=== PATIENT | female | born 2005 | race Two or more races ===

== ENCOUNTER 2024-06-25 16:33 | Emergency (ER) | payer MEDICAID ==
[~2024-06-25] VITALS: Ht 167.6 cm; Wt 63.5 kg
[2024-06-25 17:23] LABS: APPEARANCE,URINE CLEAR (CLEAR); BILIRUBIN,URINE NEGATIVE (NEGATIVE); BLOOD, URINE TRACE-INTA Ery/uL (NEGATIVE); COLOR,URINE YELLOW (YELLOW); KETONES,URINE NEGATIVE (NEGATIVE); LEUKOCYTE ESTERASE ,URINE NEGATIVE (NEGATIVE); NITRITE, URINE NEGATIVE (NEGATIVE); PROTEIN,URINE NEGATIVE (NEGATIVE); UGLUCOSE NEGATIVE (NEGATIVE); UROBILINOGEN,URINE 0.2 EU/dL (0.2)
[2024-06-25 17:25] LABS: PREGNANCY TEST URINE QUAL NEGATIVE (NEGATIVE)
[2024-06-25 17:42] LABS: SQUAMOUS EPITHELIAL CELL,UR Few /HPF (None Seen)
[2024-06-25 17:43] LABS: ADD URINE CULTURE NO; BACTERIA,URINE Rare /HPF (None Seen); WBC,URINE 0-2 /HPF (0-3)
[2024-06-25 19:25] VITALS: BP 128/80; TEMP 98.5; O2SAT 99
[2024-06-28 00:10] LABS: CHLAMYDIA TRACHOMATIS NAA Negative (Negative); NEISSERIA GONORRHOEAE NAA Negative (Negative)
== END 2024-06-25 18:45 | disposition home or self-care (01) ==
LOC: ER 16:55
DX: R31.9 Hematuria, unspecified (principal); R30.0 Dysuria; R10.2 Pelvic and perineal pain; F17.200 Nicotine dependence, unspecified, uncomplicated
CPT/HCPCS: 76770-TC; 81001; 84703-TC; 87491; 87591